=== PATIENT | male | born 1975 | race Asian ===

== ENCOUNTER 2017-04-14 11:08 | Emergency (ER) | payer OTHER ==
[~2017-04-14] VITALS: Ht 165.1 cm; Wt 71.9 kg
[2017-04-14 11:34] VITALS: BP 135/89
[2017-04-14] MEDS ORDERED: FLUORESCEIN OPHTHALMIC 1 MG STRIP EACHEYE ONE (12:00)
[2017-04-14] MEDS ORDERED: PROPARACAINE OPHTH 0.5%, 15ML EACHEYE ONE (12:00)
[2017-04-14] MEDS ORDERED: FLUORESCEIN OPHTHALMIC 1 MG STRIP ONE (12:01)
[2017-04-14] MEDS ORDERED: PROPARACAINE OPHTH 0.5%, 15ML ONE (12:01)
== END 2017-04-14 12:34 | disposition home or self-care (01) ==
LOC: ED 12:30
DX: B30.9 Viral conjunctivitis, unspecified (principal)
CPT/HCPCS: 99283